=== PATIENT | male | born 1965 | race Caucasian/White ===

== ENCOUNTER 2018-12-21 15:08 | Emergency (ER) | payer OTHER ==
--- NOTE | 2018-12-21 16:14 | UC ---
Hand/Wrist HPI - HPI Summary HPI Summary: right handed male jammed right thumb 4 weeks ago still painful and swollen unable to sustain a pincher grasp decreased ROM - History Of Current Complaint Stated Complaint: RIGHT HAND/THUMB Time Seen by Provider: 12/21/18 16:12 Hx Obtained From: Patient Onset/Duration: Sudden Onset Severity Initially: Moderate Severity Currently: Moderate Pain Intensity: 7 Pain Scale Used: 0-10 Numeric Character Of Pain: Dull, Aching, Throbbing Aggravating Factor(s): Movement Alleviating Factor(s): Rest Associated Signs And Symptoms: Positive: Swelling Related History: Dominant Hand Right Hands: 1 - prin/fusiform swelling - Allergies/Home Medications Allergies/Adverse Reactions: Allergies Allergy/AdvReac Type Severity Reaction Status Date / Time enviromental Allergy Unknown cough,wheee Uncoded 12/21/18 16:13 zing Home Medications: Home Medications Cyanocobalamin TAB* [Vitamin B12 TAB*] 1,000 mcg PO DAILY 12/21/18 [History Confirmed 12/21/18] Duloxetine HCl 60 mg PO DAILY 12/21/18 [History Confirmed 12/21/18] Folic Acid TAB* [Folvite TAB*] 1 mg PO DAILY 12/21/18 [History Confirmed ] Gabapentin CAP(*) [Neurontin 300 CAP(*)] 300 mg PO TID 12/21/18 [History Confirmed 12/21/18] Lisinopril TAB* [Prinivil TAB*] 20 mg PO DAILY 12/21/18 [History Confirmed 12/21] Naltrexone TAB* 50 mg PO BEDTIME 12/21/18 [History Confirmed 12/21/18] Pantoprazole TAB * [Protonix TAB*] 40 mg PO DAILY 12/21/18 [History Confirmed ] Sucralfate TAB* [Carafate*] 1 gm PO QID 12/21/18 [History Confirmed 12/21/18] Thiamine TAB* [Vitamin B-1 TAB 100 MG*] 12/21/18 [History] Vit B 1 DAILY 12/21/18 [History] traZODone TAB* [Desyrel TAB*] 150 mg PO BEDTIME 12/21/18 [History Confirmed ] PMH/Surg Hx/FS Hx/Imm Hx Previously Healthy: Yes Cardiovascular History: Hypertension Respiratory History: Asthma Other History Of: Hepatitis C - Surgical History Surgical History: Yes Surgery Procedure, Year, and Place: R shoulder - Family History Known Family History: Positive: Hypertension - Social History Alcohol Use: states no drink in 3 days Substance Use Type: None Smoking Status (MU): Heavy Every Day Tobacco Smoker Amount Used/How Often: 3/4 ppd Length of Time of Smoking/Using Tobacco: 33 yrs Have You Smoked in the Last Year: Yes Review of Systems All Other Systems Reviewed And Are Negative: Yes Constitutional: Positive: Negative Skin: Positive: Negative Eyes: Positive: Negative ENT: Positive: Negative Respiratory: Positive: Negative Cardiovascular: Positive: Negative Gastrointestinal: Positive: Negative Genitourinary: Positive: Negative Motor: Positive: Negative Neurovascular: Positive: Negative Musculoskeletal: Positive: Arthralgia Neurological: Positive: Negative Psychological: Positive: Negative Physical Exam Triage Information Reviewed: Yes Appearance: Well-Appearing, No Pain Distress, Well-Nourished Vital Signs Reviewed: Yes Eyes: Positive: Conjunctiva Clear ENT: Positive: Normal ENT inspection Neck: Positive: Supple, Nontender Respiratory: Positive: Lungs clear, Normal breath sounds, No respiratory distress, No accessory muscle use Cardiovascular: Positive: RRR, No Murmur Musculoskeletal: Positive: ROM Limited @ - right thumb, Edema @ - right thumb, Other: - see image Neurological: Positive: Alert Skin Exam: Normal Diagnostics - Radiology No standard instances Radiology Interpretation Completed By: Radiologist Summary of Radiographic Findings: #. Negative for fracture or malalignment. Mild osteoarthritis present throughout most. prominent at the first metacarpal phalangeal joint. Mild fusiform soft tissue swelling Hand/Wrist Course/Dx - Differential Dx/Diagnosis Provider Diagnosis: Injury of right thumb, Sprain of right thumb Discharge - Sign-Out/Discharge Documenting (check all that apply): Patient Departure All imaging exams completed and their final reports reviewed: Yes - Discharge Plan Condition: Stable Disposition: HOME Patient Education Materials: Sprain (ED) Referrals: Yaya Davis MD [Medical Doctor] - As Soon As Possible Additional Instructions: thumb spica splint I suggest you see an orthopedist for further evaluation - Billing Disposition and Condition Condition: STABLE Disposition: Home
[2018-12-21 16:26] VITALS: BP 138/79
== END 2018-12-21 17:21 | disposition home or self-care (01) ==
LOC: UCCORT 15:08
DX: S63.601A Unspecified sprain of right thumb, initial encounter (principal); J45.909 Unspecified asthma, uncomplicated; I10 Essential (primary) hypertension; F17.210 Nicotine dependence, cigarettes, uncomplicated; Z79.899 Other long term (current) drug therapy; Z91.09 Other allergy status, other than to drugs and biological substances; X58.XXXA Exposure to other specified factors, initial encounter; Y92.9 Unspecified place or not applicable
CPT/HCPCS: 99212; G0463